=== PATIENT | male | born 1985 | race Caucasian/White ===

== ENCOUNTER → 2018-10-17 | Outpatient (CLI) | payer MEDICAID ==
--- NOTE | 2018-10-17 14:46 | RAD ---
Examination: 3 views of the cervical spine, 2 views of the thoracic spine and 3 views of the lumbar spine HISTORY: History of neck pain, back pain COMPARISON: None available. Findings/ impression: The cervical vertebral body heights are maintained. The facets are well aligned. There is questionable lucency or prominent pedicle identified at the right T6 pedicle. Recommend MRI for further evaluation. Minimal scoliosis identified in this level. Mild intervertebral disc height loss identified in the lumbar spine likely degenerative changes. Electronically signed by: Alejo Arredondo MD (10/17/2018 2:43 PM) [facility]
== END | disposition home or self-care (01) ==
LOC: RAD 13:49
PROVIDERS: ATTEND Nurse Practitioner Family
DX: M41.84 Other forms of scoliosis, thoracic region (principal); M25.519 Pain in unspecified shoulder; W10.8XXA Fall (on) (from) other stairs and steps, initial encounter; Y93.89 Activity, other specified; Y92.89 Other specified places as the place of occurrence of the external cause; Y99.8 Other external cause status
CPT/HCPCS: 72040; 72072; 72100